=== PATIENT | female | born 1975 | race Caucasian/White ===

== ENCOUNTER 2020-02-11 06:22 | Day surgery (SDC) | payer OTHER ==
[~2020-02-11] VITALS: Ht 147.3 cm; Wt 59.0 kg
--- NOTE | ~2020-02-11 | O ---
[facility] [place] [address] [place] [address] OPERATIVE REPORT Name: ISLVERIO THOMPSON Room #: 150-2 [facility]..#: [id number] Admission: 02/11/20 Attend Phys: Ten Santos MD Discharge: Date of : 71 Report #: [id number] THIS REPORT FOR: cc: FAM - No family physician/PCP MARIA T - No family physician/PCP Ten Santos MD ~ CC: [facility] physician/PCP Ten Santos DATE OF SERVICE: 02/11/2020 PREOPERATIVE DIAGNOSES: Deviated nasal septum with nasal airway obstruction. POSTOPERATIVE DIAGNOSES: Deviated nasal septum with nasal airway obstruction. OPERATIVE PROCEDURE: Nasal septoplasty. ANESTHESIA: General endotracheal. DESCRIPTION OF PROCEDURE: The patient was taken to the operating room and placed in a supine position. General anesthesia was induced by endotracheal intubation. Once adequate general anesthesia was obtained, local nasal anesthesia was induced by submucoperichondrial injection of 1% lidocaine with 1:100,000 epinephrine and topical application of cocaine solution. The patient was then draped in a sterile manner. The patient had nasal septal deviation primarily to the right side. A hemitransfixion incision was placed on the right side of the nose and the mucoperichondrium and mucoperiosteum was elevated off of the septum. The cartilage was incised in front of the bony cartilaginous junction and a portion of cartilage and bone was removed from the midportion of the septum. There was a septal spur along the floor consisting of hypertrophic cartilage and a fracture of the maxillary crest. The cartilage was removed as a long strip and the maxillary crest was infractured and rongeured. After these maneuvers, the septum sat more in the midline. The hemitransfixion incision was then closed with 4-0 chromic suture and a 4-0 plain mattress sutures placed as well. The patient tolerated the procedure well. Blood loss approximately 25 mL. The patient was then awoken and taken to the recovery room in stable condition for postoperative monitoring. By: [id number] Ten Santos MD /nt
[~2020-02-11 06:22] MED LIST: ADVAIR HFA 115-12 G1 INH; ALBUTEROL2.5 MG/31 INH; DULOXETINE HCL30 MG PO; ESOMEPRAZOLE MA40 MG PO; FERROCITE324 M1 PO; IBUPROFEN 800800 M1 PO; IPRAT-ALBUT 0.5-3 ML INH; MAGNESIUM250 M1 PO; MIRAPEX0.5 MG PO; NORLYDA0.35 MG PO; OMEPRAZOLE40 MG PO; OXYBUTYNIN 5 MG5 M2 PO; SINGULAIR 10 MG10 M1 PO; VENTOLIN HFA 1818 GM INH; VOLTAREN GEL 1100 G1 TOP
[2020-02-11 07:13] LABS: HEMATOCRIT 37.2 % (37.0-47.0); MCHC 32.2 g/dL (28.0-37.0); RBC 4.27 mil/uL (4.20-5.00); RDW 15.3 % (10.5-14.5); WBC 9.7 thou/uL (4.0-11.0)
--- NOTE | 2020-02-11 07:49 | H ---
[facility] [address] HISTORY AND PHYSICAL Name: SILVERIO THOMPSON Room #: 150-2 [facility]..#: [id number] Admission: 02/11/20 Attend Phys: Ten Santos MD Discharge: Date of : 71 Report #: [id number] THIS REPORT FOR: cc: FAM - No family physician/PCP FAM - No family physician/PCP Ten Santos MD ~ CC: MARIA T unknown Ten Santos PREOPERATIVE HISTORY AND PHYSICAL Her procedure is scheduled for 02/11/2020. HISTORY OF PRESENT ILLNESS: The patient has problems with sinus infections. She has difficulty breathing through the right side of her nose. She has been treated with steroids and antibiotics. A CT scan of her sinuses shows a very severely deviated nasal septum to the right side with the septum indenting the inferior turbinate and pushing the middle turbinate laterally. The septum is up against the lateral wall causing complete blockage of the right side. Her sinuses were clear. PAST MEDICAL HISTORY: Otherwise, not significant. MEDICATIONS: She is on no medications on a regular basis. ALLERGIES: She has no known drug allergies. PHYSICAL EXAMINATION: She has a very severely deviated nasal septum to the right side with crusting on both sides. Her oropharynx and oral cavity were clear. IMPRESSION: Deviated nasal septum with nasal airway obstruction. PLAN: Nasal septoplasty. <ELECTRONICALLY SIGNED> By: Ten Santos MD 02/11/20 0749 [id number] Ten Santos MD /jose antonio
[2020-02-11 08:55] VITALS: BP 128/70
[2020-02-11 09:13] VITALS: BP 128/70
== END 2020-02-11 10:25 | disposition still patient (30) ==
LOC: TBA 06:22 → OR 06:22 → TBA 06:52 → OR 10:13
PROVIDERS: Otolaryngology
DX: J34.2 Deviated nasal septum (principal); J34.89 Other specified disorders of nose and nasal sinuses; J45.909 Unspecified asthma, uncomplicated; D64.9 Anemia, unspecified; K21.9 Gastro-esophageal reflux disease without esophagitis; Z98.890 Other specified postprocedural states; Z79.899 Other long term (current) drug therapy; Z90.49 Acquired absence of other specified parts of digestive tract
CPT/HCPCS: 50010; 50101; 50386; 50398; 50445; 56524; 56528; 62110; 62900; 70005